=== PATIENT | female | born 1940 | race Caucasian/White ===

== ENCOUNTER 2019-05-26 08:41 | Day surgery (SDC) | payer MEDICARE, OTHER ==
[~2019-05-26] VITALS: Ht 165.1 cm; Wt 100.0 kg
[2019-05-26] MEDS ORDERED: SODIUM CHLORIDE 0.9% 1,000 ML IV SCH (09:20)
[2019-05-26 09:25] VITALS: BP 139/78
[2019-05-26] MEDS ORDERED: SODIUM CHLORIDE 0.9% 1,000 ML IV ONE (09:30)
[2019-05-26] MEDS ORDERED: PLEASE ENTER HEIGHT AND WEIGHT MC SCH (09:30)
[2019-05-26] MEDS ORDERED: AMIO200T42 PO (09:46)
[2019-05-26] MEDS ORDERED: TRIA1CAP3 PO (09:46)
[2019-05-26] MEDS ORDERED: LEVO150T5 PO (09:46)
[2019-05-26] MEDS ORDERED: POTA20TA6 PO (09:46)
[2019-05-26] MEDS ORDERED: METO-99 PO (09:46)
[2019-05-26] MEDS ORDERED: ALBU90AE INH (09:46)
[2019-05-26] MEDS ORDERED: APIX5TAB PO (09:46)
[2019-05-26] MEDS ORDERED: LOVA40TA2 PO (09:46)
[2019-05-26] MEDS ORDERED: PRED5TAB PO (09:46)
[2019-05-26] MEDS ORDERED: MIDAZOLAM 1 MG/ML, 2ML ONE (12:41)
[2019-05-26] MEDS ORDERED: FENTANYL PF 250 MCG/5ML ONE (12:41)
[2019-05-26] MEDS ORDERED: DEXAMETHASONE 4 MG/ML, 1ML ONE ×2 (12:42→13:16)
[2019-05-26] MEDS ORDERED: ONDANSETRON 2MG/ML, 2ML ONE ×2 (12:42→13:58)
[2019-05-26] MEDS ORDERED: LIDOCAINE 1%, 20ML ONE (12:56)
[2019-05-26] MEDS ORDERED: PROTAMINE SULFATE 10 MG/ML, 5ML ONE (13:01)
[2019-05-26] MEDS ORDERED: ISOPROTERENOL 0.2MG/ML, 5ML ONE (13:01)
[2019-05-26] MEDS ORDERED: PROPOFOL 10 MG/ML, 20ML ONE (13:55)
[2019-05-26] MEDS ORDERED: ROCURONIUM 10MG/ML,5ML ONE (13:58)
[2019-05-26] MEDS ORDERED: CEFAZOLIN 1,000 MG ONE ×2 (13:58)
[2019-05-26] MEDS ORDERED: SUCCINYLCHOLINE 20 MG/ML, 10ML ONE (13:58)
[2019-05-26] MEDS ORDERED: ACETAMINOPHEN 325 MG TABLET PO PRN ×2 (14:00→14:30)
[2019-05-26] MEDS ORDERED: TEMPLATE NON-FORMULARY MED. (Albuterol Sulfate (Proair Respiclick) 2 PUFF(S)) INH SCH (14:00)
[2019-05-26] MEDS ORDERED: ONDANSETRON 2MG/ML, 2ML IV PRN (14:30)
[2019-05-26] MEDS ORDERED: MORPHINE SULFATE 4 MG/ML, 1ML IVPush PRN (14:30)
[2019-05-26] MEDS ORDERED: EPHEDRINE 50 MG/ML, 1ML IVPush PRN (14:30)
[2019-05-26] MEDS ORDERED: MIDAZOLAM 1 MG/ML, 2ML IV PRN (14:30)
[2019-05-26] MEDS ORDERED: ONDANSETRON ODT 8 MG PO PRN (14:30)
[2019-05-26] MEDS ORDERED: PROMETHAZINE 12.5 MG SUPP PR PRN (14:30)
[2019-05-26] MEDS ORDERED: FENTANYL PF 100 MCG/2ML IV PRN (14:30)
[2019-05-26] MEDS ORDERED: HYDROmorphone 2 MG/ML, 1ML IVPush PRN (14:30)
[2019-05-26] MEDS ORDERED: LABETALOL 5MG/ML, 20ML IV PRN (14:30)
[2019-05-26] MEDS ORDERED: OXYcodone 5 MG/5 ML ORAL.SOL UDC PO PRN (14:30)
[2019-05-26] MEDS ORDERED: MEPERIDINE/PF 25MG/0.5ML IVPush PRN (14:30)
[2019-05-26] MEDS ORDERED: PROMETHAZINE 25 MG/ML, 1ML IV PRN (14:30)
[2019-05-26] MEDS ORDERED: DIAZEPAM 5 MG/ML, 2ML IVPush PRN (14:30)
[2019-05-26] MEDS ORDERED: hydrALAzine 20 MG/ML, 1ML IV PRN (14:30)
[2019-05-26] MEDS ORDERED: ALBUTEROL SULFATE 2.5 MG/3 ML NPPB PRN (14:30)
[2019-05-26] MEDS ORDERED: HALOPERIDOL 5 MG/ML IV PRN (14:30)
[2019-05-26] MEDS ORDERED: APIXABAN 5 MG TABLET ONE (17:19)
[2019-05-26] MEDS ORDERED: ALBUTEROL SULFATE 2.5 MG/3 ML HHN SCH (18:00)
[2019-05-26] MEDS ORDERED: POTASSIUM CHLORIDE 10 MEQ TABLET.ER PO SCH (21:00)
[2019-05-26] MEDS ORDERED: APIXABAN 5 MG TABLET PO SCH (21:00)
[2019-05-26] MEDS ORDERED: METOPROLOL TARTRATE 100 MG TABLET PO SCH (21:00)
[2019-05-26] MEDS ORDERED: LOVASTATIN 40 MG TABLET PO SCH (21:00)
[2019-05-27] MEDS ORDERED: LEVOTHYROXINE 150 MCG TABLET PO SCH (06:00)
[2019-05-27] MEDS ORDERED: AMIODARONE 200 MG TABLET PO SCH (09:00)
[2019-05-27] MEDS ORDERED: TRIAMTERENE-HCTZ 37.5/25 MG TABLET PO SCH (09:00)
[2019-05-27] MEDS ORDERED: [UNRECOGNIZED DRUG - OTHER] PO SCH (09:00)
== END 2019-05-26 19:03 | disposition home or self-care (01) ==
LOC: CACL 08:41 → 5SO 15:41 → CACL 19:03
PROVIDERS: ATTEND Internal Medicine Cardiovascular Disease
DX: I48.92 Unspecified atrial flutter (principal); J44.9 Chronic obstructive pulmonary disease, unspecified; E03.9 Hypothyroidism, unspecified; I48.91 Unspecified atrial fibrillation; I10 Essential (primary) hypertension; E78.5 Hyperlipidemia, unspecified; Z95.0 Presence of cardiac pacemaker; Z87.891 Personal history of nicotine dependence
CPT/HCPCS: 93312; 93321; 93325; 93613; 93621; 93653; 93662; C1730; C1731; C1894; C2630; J0330; J0690; J1100; J2250; J2405; J2704; J2720; J3010; G0378

== ENCOUNTER 2019-07-05 11:54 | Outpatient (CLI) | payer MEDICARE, OTHER | END 2019-07-05 23:59 | disposition home or self-care (01) | LOC: CFH 11:54 | PROVIDERS: ATTEND Registered Nurse | DX: R60.0 Localized edema (principal) | CPT/HCPCS: 93970 ==